=== PATIENT | female | born 1940 | race Caucasian/White ===

== ENCOUNTER → 2018-05-07 | Outpatient (CLI) | payer OTHER, MEDICARE ==
[~2018-05-07] VITALS: Ht 152.4 cm; Wt 61.2 kg
[~2018-05-07] MED LIST: ASPIR 8181 MG PO; BYSTOLIC 5 MG5 MG PO; CENTRUM SILVER1 EAC4 PO; CO-ENZYME Q-1010 MG PO; FISH OIL 1,001000 M2 PO; HALCION0.25 MG PO; IBUPROFEN 200200 M1 PO; LISINOPRIL5 MG PO; STOOL SOFTENER100 MG PO; VITAMIN D2000 UNIT PO; ZOCOR20 MG PO
--- NOTE | ~2018-05-07 | PATH ---
[facility] [address] [place] [address] PATHOLOGY RPT PROCEDURE Name: RAYSA BHANDARI Room #: REG [facility] Shahriar.#: [id number] Admission: 05/07/18 Date of : 40 Discharge: Report #: [id number] Path Case #: [id number] [facility] Accession Number: [id number] . 01 Material submitted: . BX OF GASTRITIS . 01 Clinical history: . Hiatal hernia, gastritis, diverticulosis, duodenitis, Schatzki's ring . 02 Diagnosis: "BX of gastritis", biopsy: - Gastric mucosa with reactive/regenerative changes, focal mild foveolar hyperplasia and mild predominantly chronic inflammation. - Negative H. pylori immunohistochemical stain (Block A1); control reacted appropriately. (CLW:kourtney; 05/08/2018) QMS/05/08/2018 . 02 Electronically signed: . Chante Arce MD, Pathologist NPI- [id number] . 01 Gross description: . Received in formalin labeled "Raysa Bhandari, BX of gastritis," are 6 segments of comer soft tissue measuring 1.5 x 0.9 x 0.2 cm in aggregate dimensions and ranging from 0.2 to 0.4 cm in maximum dimension. The specimen is submitted entirely in cassette A1. (TSD; 05/07/2018) TOB/TOB . 02 Pathologist provided ICD-10: K29.50 . 02 CPT . 243894, E21167 Performed at: [address], [place] [id number] MD Leo Mcleod MD Phone: [phone] Performed at: [address] [id number] MD Leanne Abraham MD Phone: [phone]
--- NOTE | ~2018-05-07 | P ---
[facility] [place] [address] PROCEDURE REPORT Name: LRORAINE LOONEY Room #: REG [facility]#: [id number] Admission: 05/07/18 Attend Phys: Guilherme Saunders MD Discharge: Date of : 40 Report #: [id number] THIS REPORT FOR: //name// CC: Guilherme Desouza MD DATE OF SERVICE: 05/07/2018 BRIEF HISTORY: The patient is a 77-year-old woman who has had intermittent episodes of heartburn. She also has bouts of nausea and vomiting. PREOPERATIVE DIAGNOSIS: Reflux symptoms with nausea and vomiting. POSTOPERATIVE DIAGNOSES: 1. Grade A esophagitis. 2. Small hiatus hernia. 3. Moderate antral gastritis. 4. Moderate bulbar duodenitis. 5. Moderate Schatzki ring. MEDICATIONS: Deep sedation with propofol per anesthesia. SPECIMEN: Biopsies of gastritis. ESTIMATED BLOOD LOSS: 3 mL. PROCEDURE: EGD with biopsy and Ramirez dilation. FINDINGS: Prior to propofol sedation, procedure of upper endoscopy discussed with the patient as well as potential risks and its complications. She indicates she understands and desires to proceed. DESCRIPTION OF PROCEDURE: With the patient in left lateral decubitus position, the [employer]i video endoscope was inserted in the cervical esophagus under direct vision without difficulty. Examination of this organ through its length revealed normal esophageal mucosa down the squamocolumnar junction. Squamocolumnar junction was inspected. Several small erosions were seen along the squamocolumnar junction consistent with reflux esophagitis. Morrison esophagus was not seen. No mass lesions were seen. Intermittently, ____ Schatzki ring was seen. In addition, a 2 cm sliding type hiatus hernia was noted. The mucosa and hernia was normal. Scope was advanced in the stomach, was examined on end view as well as retroflexed views. There was a pattern of diffuse gastritis in the antrum of the stomach. Scattered erosions were seen. No ulcers were identified. Upon retroflexion, no mass lesions were seen. A small hiatus hernia was identified. The pylorus, duodenal bulb and postbulbar [facility] [address] [place] [address] PROCEDURE REPORT Name: LORRAINE LOONEY Room #: [facility].#: [id number] Admission: 05/07/18 Attend Phys: Guilherme Saunders MD Discharge: Date of : 40 Report #: [id number] sweep were all inspected. There was some erosion in the second portion of duodenum just beyond the bulb. No ulcers were seen. At that point, the scope was slowly withdrawn and careful circumferential views confirmed the above findings. The patient tolerated the procedure well. Following procedure, she was dilated with passage of 50-Malay Ramirez dilator. There was no resistance. CONDITION OF THE PATIENT UPON DISCHARGE: Following procedure, the patient drowsy and arousable. She was then prepared for colonoscopy. INSTRUCTIONS TO THE PATIENT AND FAMILY AT THE TIME OF DISCHARGE: The patient has history of intermittent reflux and also bouts of nausea and vomiting. She clearly has reflux esophagitis. We will have her start omeprazole 20 mg daily. Also, she should be referred for dilation on an as needed basis with regard to her Schatzki ring. <ELECTRONICALLY SIGNED> By: Guilherme Saunders MD 05/08/18 1723 1027 [id number] Guilherme Saunders MD /nt
--- NOTE | ~2018-05-07 | P ---
[facility] [place] [address] PROCEDURE REPORT Name: LORRAINE LOONEY Room #: REG [facility]#: [id number] Admission: 05/07/18 Attend Phys: Guilherme Saunders MD Discharge: Date of : 40 Report #: [id number] THIS REPORT FOR: //name// CC: Guilherme Desouza MD DATE OF SERVICE: 05/07/2018 BRIEF HISTORY: The patient is a 77-year-old woman with recent change in bowel habits with alternating bouts of diarrhea and constipation. PREOPERATIVE DIAGNOSIS: Change in bowel habits. POSTOPERATIVE DIAGNOSIS: Moderately severe left-sided diverticulosis coli with scattered proximal colon diverticula. MEDICATIONS: Deep sedation with propofol per anesthesia. SPECIMEN: None. ESTIMATED BLOOD LOSS: None. PROCEDURE: Colonoscopy to cecum and terminal ileum. FINDINGS: Prior to propofol sedation, procedure of colonoscopy discussed with the patient as well as potential risks and its complications. She indicates she understands and desires to proceed. DESCRIPTION OF PROCEDURE: With the patient in the left lateral decubitus position, digital examination was completed which revealed no abnormalities. Subsequently, the Olympus video colonoscope was introduced in the rectum, advanced under direct vision to the cecum. Done with minimal difficulty. The cecum was identified by the ileocecal valve and the appendiceal orifice. I was able to visualize the distal segment of terminal ileum, which was inspected and noted to be unremarkable. At that point, the scope was slowly withdrawn and careful circumferential views obtained. Upon slow withdrawal of the scope, the prep was good. The mucosa was within normal limits, normal vascular pattern, normal light reflex. As we withdrew the scope, she was noted to have diverticula throughout the colon including the cecum and ascending colon. There was no endoscopic evidence of diverticulitis. However, no neoplastic lesions were seen. No obstructing lesions were seen. No inflammatory lesions were seen. As the scope was withdrawn, the mucosa was within normal limits. In the sigmoid colon, there was moderately severe diverticular disease without endoscopic evidence of diverticulitis. The scope was withdrawn in the rectum and upon retroflexion, no abnormalities were seen. Scope was withdrawn. The [address] [address] PROCEDURE REPORT Name: LORRAINE LOONEY Room #: REG [facility] Shahriar.#: [id number] Admission: 05/07/18 Attend Phys: Guilherme Saunders MD Discharge: Date of : 40 Report #: [id number] patient tolerated the procedure well. CONDITION OF THE PATIENT UPON DISCHARGE: Following procedure, the patient drowsy, arousable and conversant. She will be discharged to home when fully ambulatory. INSTRUCTIONS TO THE PATIENT AND FAMILY AT THE TIME OF DISCHARGE: I do not see any lesions to explain her change in bowel habits. No neoplastic lesions were seen. Suggest high fiber diet. If she continues to have difficulty, she will return to office for followup. Her last colonoscopy was in 05/2005. Withdrawal time from the cecum was 10 minutes and 24 seconds. <ELECTRONICALLY SIGNED> By: Guilherme Saunders MD 05/08/18 1723 1054 [id number] Guilherme Saunders MD /nt
== END | disposition home or self-care (01) ==
LOC: GI 08:20
DX: K57.30 Diverticulosis of large intestine without perforation or abscess without bleeding (principal); K21.0 Gastro-esophageal reflux disease with esophagitis; K44.9 Diaphragmatic hernia without obstruction or gangrene; K29.50 Unspecified chronic gastritis without bleeding; K29.80 Duodenitis without bleeding; K22.2 Esophageal obstruction; K25.9 Gastric ulcer, unspecified as acute or chronic, without hemorrhage or perforation; K26.9 Duodenal ulcer, unspecified as acute or chronic, without hemorrhage or perforation; I10 Essential (primary) hypertension; E78.5 Hyperlipidemia, unspecified; I25.2 Old myocardial infarction; E78.00 Pure hypercholesterolemia, unspecified; Z79.899 Other long term (current) drug therapy; Z79.82 Long term (current) use of aspirin; Z98.890 Other specified postprocedural states; Z85.3 Personal history of malignant neoplasm of breast
CPT/HCPCS: 62110; 62900

== ENCOUNTER → 2019-11-29 | Outpatient (CLI) | payer OTHER, MEDICARE | LOC: SJCVC 14:59 | DX: I44.0 Atrioventricular block, first degree (principal); R94.31 Abnormal electrocardiogram [ECG] [EKG]; I10 Essential (primary) hypertension; E78.00 Pure hypercholesterolemia, unspecified; I51.81 Takotsubo syndrome; I45.10 Unspecified right bundle-branch block; I25.2 Old myocardial infarction; I42.9 Cardiomyopathy, unspecified; Z79.82 Long term (current) use of aspirin; Z79.899 Other long term (current) drug therapy ==

== ENCOUNTER → 2021-12-31 | Outpatient (CLI) | payer OTHER, MEDICARE | LOC: SJCVC 13:20 | PROVIDERS: ATTEND Internal Medicine Cardiovascular Disease | DX: R94.31 Abnormal electrocardiogram [ECG] [EKG] (principal); I51.81 Takotsubo syndrome; I10 Essential (primary) hypertension; E78.00 Pure hypercholesterolemia, unspecified; I71.2 Thoracic aortic aneurysm, without rupture; Z79.899 Other long term (current) drug therapy; Z82.49 Family history of ischemic heart disease and other diseases of the circulatory system ==